=== PATIENT | female | born 1955 | race Caucasian/White ===

== ENCOUNTER 2021-01-19 11:05 | Emergency (ER) | payer MEDICARE ==
[~2021-01-19] VITALS: Ht 167.6 cm; Wt 68.2 kg
[2021-01-19 11:49] LABS: BASOPHILS % (AUTO) 1 % (0-1); EOSINOPHILS % (AUTO) 1 % (1-7); LYMPHOCYTES % (AUTO) 16 % (22-44); MEAN CORPUSCULAR HEMOGLOBIN 29.9 pg (27.0-34.8); MEAN CORPUSCULAR HGB CONC 33.6 g/dL (32.4-35.8); MEAN PLATELET VOLUME 8.9 fL (7.4-10.4); MONOCYTES % (AUTO) 9 % (2-9); NEUTROPHILS % (AUTO) 73 % (42-75); PLATELET COUNT 405 x10^3/uL (130-400); RED BLOOD COUNT 3.82 x10^6/uL (3.82-5.3); RED CELL DISTRIBUTION WIDTH 14.2 % (9.6-15.2)
[2021-01-19 11:55] LABS: ALBUMIN 2.9 g/dL (3.4-5.0); ANION GAP 10 mmol/L (5-15); CALCIUM 9.2 mg/dL (8.5-10.1); CHLORIDE 95 mmol/L (98-107)
[2021-01-19 11:59] LABS: ALANINE AMINOTRANSFERASE 15 U/L (12-78); ALKALINE PHOSPHATASE 167 U/L (45-117); BILIRUBIN,TOTAL 0.6 mg/dL (0.2-1.0)
--- NOTE | 2021-01-19 13:52 | NUR ---
winding inspector: Patient was brought into triage in her wheelchair. Vitals were assessed and continued to stay unchanged.
--- NOTE | 2021-01-19 14:48 | NUR ---
visual and stock associate: Pt to room from lobby at this time VIA WHEELCHAIR
--- NOTE | 2021-01-19 15:07 | NUR ---
PT BIB SISTER VIA POV. PER PT SHE HAS HX OF VERTIGO AND FEELS THE SAME. PT STATES HER MEDICATIONS HAVE NOT BEEN WORKING. PT RESTING IN [facility], MONITORING IN PLACE, THU AT THIS TIME, RIA.
[2021-01-19] MEDS ORDERED: MECLIZINE CHEWABLE 25 MG TAB PO ONE (15:30)
[2021-01-19] MEDS ORDERED: ONDANSETRON ODT 4 MG PO ONE (15:30)
[2021-01-19] MEDS ORDERED: MECLIZINE CHEWABLE 25 MG TAB ONE (15:52)
[2021-01-19] MEDS ORDERED: ONDANSETRON ODT 4 MG ONE (15:52)
[2021-01-19 15:55] VITALS: BP 141/69
--- NOTE | 2021-01-19 15:56 | NUR ---
BREAK RN: PT. MEDICATED PER MAR. VS UPDATED. PT. DENIES NEEDS AT THIS TIME.
--- NOTE | 2021-01-19 16:02 | NUR ---
REPORT BACK TO FARZANA DA SILVA.
--- NOTE | 2021-01-19 17:23 | NUR ---
PT VERBALIZED UNDERSTANDING OF DISCHARGE INSTRUCTIONS AND EDUCATION. PT WHEELED TO DC DESK. PER PT HER SISTER IS COMING TO PICK HER UP.
== END 2021-01-19 17:25 | disposition home or self-care (01) ==
LOC: ED 11:35
DX: N18.30 Chronic kidney disease, stage 3 unspecified (principal); J32.3 Chronic sphenoidal sinusitis; J32.0 Chronic maxillary sinusitis; J32.1 Chronic frontal sinusitis; H81.13 Benign paroxysmal vertigo, bilateral; R73.9 Hyperglycemia, unspecified; R11.2 Nausea with vomiting, unspecified; R94.31 Abnormal electrocardiogram [ECG] [EKG]; R51.9 Headache, unspecified
CPT/HCPCS: 36415; 70450; 80053; 85025; 93005; 99285; Q0162